=== PATIENT | female | born 1945 | race Caucasian/White ===

== ENCOUNTER 2023-09-24 11:41 | Inpatient (IN) | payer OTHER, MEDICARE ==
[2023-09-24] VITALS (7 sets, daily range): BP systolic 122–172; BP diastolic 53–68; PULSE 58–62; RESP 18–19; TEMP 97.1–98.3; O2SAT 97–98
[~2023-09-24] VITALS: Ht 162.6 cm; Wt 81.7 kg
[2023-09-24 13:24] LABS: BASOPHILS # (AUTO) 0.1 K/uL (0.00-0.22); BASOPHILS % (AUTO) 0.8 % (0.0-2.0); EOSINOPHILS # (AUTO) 0.2 K/uL (0-0.4); EOSINOPHILS % (AUTO) 2.3 % (0.0-4.0); HEMATOCRIT 29.2 % (36-48); HEMOGLOBIN 9.6 g/dL (12.0-16.0); LYMPHOCYTES # (AUTO) 1.4 K/uL (2.5-16.5); LYMPHOCYTES % (AUTO) 19.2 % (20.5-51.1); MEAN CORPUSCULAR HEMOGLOBIN 30 pg (27-31); MEAN CORPUSCULAR HGB CONC 33 g/dL (33-37); MEAN CORPUSCULAR VOLUME 91.3 fL (80-94); MONOCYTES # (AUTO) 0.7 K/uL (0.8-1.0); MONOCYTES % (AUTO) 10.5 % (1.7-9.3); NEUTROPHILS # (AUTO) 4.8 K/uL (1.8-7.7); NEUTROPHILS % (AUTO) 67.2 % (42.2-75.2); PLATELET COUNT (AUTO) 257 K/uL (140-450); RED CELL DISTRIBUTION WIDTH 14.6 % (11.6-13.7); WHITE BLOOD COUNT (AUTO) 7.2 K/uL (4.8-10.8)
[2023-09-24 13:35] LABS: ANION GAP 14.7 (8-16); CALCIUM 8.9 mg/dL (8.5-10.1); CARBON DIOXIDE 21.4 mmol/L (21-32); CHLORIDE 104 mmol/L (98-107); CREATININE 2.6 mg/dL (0.6-1.3); GLUCOSE 130 mg/dL (74-106); SODIUM SERUM 134 mmol/L (136-145)
[2023-09-24 13:37] LABS: POTASSIUM 6.1 mmol/L (3.5-5.1); UREA NITROGEN, BLOOD 64 mg/dL (7-18)
[2023-09-24 13:38] LABS: INR 0.97 (0.8-1.2); PARTIAL THROMBOPLASTIN TIME 32.1 secs (22-35.6); PROTHROMBIN TIME 10.2 secs (10.8-13.4)
[2023-09-24 13:44] LABS: ALANINE AMINOTRANSFERASE 15 U/L (12-78); ALBUMIN 3.4 g/dL (3.4-5.0); ALKALINE PHOSPHATASE 108 U/L (50-136); ASPARTATE AMINOTRANSFERASE 15 U/L (15-37); BILIRUBIN,DIRECT 0.1 mg/dL (0.0-0.3); TOTAL BILIRUBIN 0.3 mg/dL (0.0-1.0); TOTAL PROTEIN, SERUM 7.2 g/dL (6.4-8.2)
[2023-09-24] MEDS: SODIUM ZIRCONIUM CYCLOSILICATE 10 GM POWD.PACK PO ONE (14:05)
[2023-09-24] MEDS: DEXTROSE 50% 50 ML SYR IVP ONE (14:07)
[2023-09-24] MEDS: INSULIN REGULAR, HUMAN 100 UNIT/ML VIAL IVP ONE (14:08)
[2023-09-24] MEDS: SODIUM BICARBONATE 8.4% PFS 50 MEQ/50 ML SYR IVP ONE (14:12)
[2023-09-24] MEDS ORDERED: DAPA10TA PO (14:57)
[2023-09-24] MEDS ORDERED: MIRABULK PO (14:57)
[2023-09-24] MEDS ORDERED: LACT-191 PO (14:57)
[2023-09-24] MEDS ORDERED: LANTUS SUBQ (14:57)
[2023-09-24] MEDS ORDERED: SPIR50TA PO (14:57)
[2023-09-24] MEDS ORDERED: AMIO200T62 PO (14:57)
[2023-09-24] MEDS ORDERED: ATRN INH (14:57)
[2023-09-24] MEDS ORDERED: ESCI5TAB PO (14:57)
[2023-09-24] MEDS ORDERED: PRON INH (14:57)
[2023-09-24] MEDS ORDERED: INSU100V11 SQ (14:57)
[2023-09-24] MEDS ORDERED: APIX5TAB PO (14:57)
[2023-09-24] MEDS ORDERED: FAMO-368 PO (14:57)
[2023-09-24] MEDS ORDERED: FERR325E14 PO (14:57)
[2023-09-24] MEDS ORDERED: FURO-570 PO (14:57)
[2023-09-24] MEDS ORDERED: FOLI1TAB90 PO (14:57)
[2023-09-24] MEDS ORDERED: TRAZ-343 PO (14:57)
[2023-09-24] MEDS ORDERED: CALC1TAB72 PO (14:57)
[2023-09-24] MEDS ORDERED: DOCU-299 PO (14:57)
[2023-09-24 14:58] LABS: BILIRUBIN,URINE NEGATIVE (NEGATIVE); BLOOD, URINE NEGATIVE (NEGATIVE); COLOR,URINE YELLOW (YELLOW); LEUKOCYTE ESTERASE ,URINE TRACE (NEGATIVE); NITRITE, URINE NEGATIVE (NEGATIVE); PROTEIN,URINE NEGATIVE (NEGATIVE); UGLUCOSE 1+ (NEGATIVE); UROBILINOGEN,URINE 0.2 EU/dL (0.2 - 1)
[2023-09-24 15:03] LABS: APPEARANCE,URINE SLIGHTLY HAZY (CLEAR)
[2023-09-24 15:06] LABS: RBC,URINE 0 /HPF (0-5); WBC,URINE 0-5 /HPF (0-5)
[2023-09-24 15:07] LABS: BACTERIA,URINE 0-2 /HPF (None Seen); MUCUS,URINE 1+ /LPF (None Seen); SQUAMOUS EPITHELIAL CELL,UR 0-3 (FEW) /LPF (0-3 (FEW))
[2023-09-24] MEDS ORDERED: MORPHINE SULFATE 2 MG/ML SYR IVP PRN (17:50)
[2023-09-24] MEDS: NACL 0.9% 1,000 ML IV SCH (18:45)
[2023-09-25] VITALS (8 sets, daily range): BP systolic 112–122; BP diastolic 50–53; PULSE 60–62; RESP 18–20; TEMP 96–97.7; O2SAT 95–100
[2023-09-25 06:26] LABS: BASOPHILS % (AUTO) 0.7 % (0.0-2.0); EOSINOPHILS # (AUTO) 0.2 K/uL (0-0.4); EOSINOPHILS % (AUTO) 2.9 % (0.0-4.0); HEMATOCRIT 28.2 % (36-48); HEMOGLOBIN 9.4 g/dL (12.0-16.0); LYMPHOCYTES # (AUTO) 1.1 K/uL (2.5-16.5); LYMPHOCYTES % (AUTO) 18.6 % (20.5-51.1); MEAN CORPUSCULAR HEMOGLOBIN 30 pg (27-31); MEAN CORPUSCULAR HGB CONC 33 g/dL (33-37); MEAN CORPUSCULAR VOLUME 91.1 fL (80-94); MONOCYTES # (AUTO) 0.7 K/uL (0.8-1.0); MONOCYTES % (AUTO) 11.2 % (1.7-9.3); NEUTROPHILS # (AUTO) 3.9 K/uL (1.8-7.7); NEUTROPHILS % (AUTO) 66.6 % (42.2-75.2); PLATELET COUNT (AUTO) 241 K/uL (140-450); RED BLOOD CELL COUNT(AUTO) 3.09 MIL/uL (4.20-5.40); RED CELL DISTRIBUTION WIDTH 14.7 % (11.6-13.7); WHITE BLOOD COUNT (AUTO) 5.9 K/uL (4.8-10.8)
[2023-09-25 06:34] LABS: ANION GAP 12.1 (8-16); CALCIUM 8.8 mg/dL (8.5-10.1); CARBON DIOXIDE 25.6 mmol/L (21-32); CHLORIDE 107 mmol/L (98-107); CREATININE 2.6 mg/dL (0.6-1.3); GLUCOSE 122 mg/dL (74-106); POTASSIUM 4.7 mmol/L (3.5-5.1); SODIUM SERUM 140 mmol/L (136-145); UREA NITROGEN, BLOOD 57 mg/dL (7-18)
[2023-09-25] MEDS: ONDANSETRON 4 MG/2 ML VIAL IVP PRN (11:06)
[2023-09-25] MEDS: PANTOPRAZOLE 40 MG INJ VIAL IVP SCH (21:34)
[2023-09-25] MEDS: MEDS-TO-BEDS MC SCH (21:35)
[2023-09-26] VITALS (8 sets, daily range): BP systolic 114–139; BP diastolic 48–87; PULSE 56–64; RESP 17–20; TEMP 96.9–97.7; O2SAT 95–97
[2023-09-27] VITALS (7 sets, daily range): BP systolic 137–157; BP diastolic 50–63; PULSE 56–68; RESP 18–20; TEMP 96.9–98.6; O2SAT 98–99
[2023-09-27] MEDS: LACTULOSE 20 GM/30 ML UDC PO SCH (13:27)
[2023-09-27] MEDS: POLYETHYLENE GLYCOL 17 GM/PKT PO SCH (13:28)
[2023-09-28] VITALS: BP 141/60; PULSE 60; RESP 19; TEMP 97.5; O2SAT 98
[2023-09-28 04:00] VITALS: BP 152/59; PULSE 60; RESP 19; TEMP 97.6; O2SAT 100
[2023-09-28 08:00] VITALS: BP 141/56; PULSE 60; PULSE 61; RESP 17; TEMP 97.8; O2SAT 98
[2023-09-28] MEDS: SENNA 8.6 MG TAB PO SCH ×2 (09:48→14:21)
[2023-09-28 12:00] VITALS: BP 160/45; PULSE 60; RESP 18; TEMP 97.3; O2SAT 99
[2023-09-28] MEDS: diphenhydrAMINE 50 MG/ML VIAL ONE (13:00)
[2023-09-28] MEDS: MIDAZOLAM 5 MG/5 ML VIAL ONE (13:00)
[2023-09-28] MEDS: fentaNYL citrate 0.05 MG/ML VIAL ONE (13:00)
[2023-09-28] MEDS: MIDAZOLAM 2 MG/2 ML VIAL IVP ONE (13:36)
[2023-09-28] MEDS: fentaNYL citrate 0.05 MG/ML VIAL IVP ONE (13:37)
[2023-09-28 14:38] LABS: BASOPHILS # (AUTO) 0.1 K/uL (0.00-0.22); BASOPHILS % (AUTO) 0.9 % (0.0-2.0); EOSINOPHILS # (AUTO) 0.1 K/uL (0-0.4); EOSINOPHILS % (AUTO) 2.3 % (0.0-4.0); HEMATOCRIT 28.5 % (36-48); HEMOGLOBIN 9.4 g/dL (12.0-16.0); LYMPHOCYTES # (AUTO) 1.1 K/uL (2.5-16.5); LYMPHOCYTES % (AUTO) 20.7 % (20.5-51.1); MEAN CORPUSCULAR HEMOGLOBIN 30 pg (27-31); MEAN CORPUSCULAR HGB CONC 33 g/dL (33-37); MEAN CORPUSCULAR VOLUME 91.4 fL (80-94); MONOCYTES # (AUTO) 0.5 K/uL (0.8-1.0); MONOCYTES % (AUTO) 9.8 % (1.7-9.3); NEUTROPHILS # (AUTO) 3.5 K/uL (1.8-7.7); NEUTROPHILS % (AUTO) 66.3 % (42.2-75.2); PLATELET COUNT (AUTO) 222 K/uL (140-450); RED BLOOD CELL COUNT(AUTO) 3.12 MIL/uL (4.20-5.40); WHITE BLOOD COUNT (AUTO) 5.4 K/uL (4.8-10.8)
[2023-09-28 14:49] LABS: ANION GAP 12.8 (8-16); CALCIUM 8.3 mg/dL (8.5-10.1); CARBON DIOXIDE 22.1 mmol/L (21-32); CHLORIDE 112 mmol/L (98-107); CREATININE 1.9 mg/dL (0.6-1.3); GLUCOSE 115 mg/dL (74-106); POTASSIUM 4.9 mmol/L (3.5-5.1); SODIUM SERUM 142 mmol/L (136-145); UREA NITROGEN, BLOOD 35 mg/dL (7-18)
[2023-09-28] MEDS: MAGNESIUM HYDROXIDE 2400 MG/30 ML UDC PO ONE (15:35)
[2023-09-28 16:00] VITALS: BP 125/50; PULSE 60; RESP 18; TEMP 97.8; O2SAT 98
[2023-09-28] MEDS: MAGNESIUM HYDROXIDE 2400 MG/30 ML UDC ONE (17:08)
[2023-09-28] MEDS: LACTULOSE 20 GM/30 ML UDC PO SCH (17:09)
[2023-09-28] MEDS: LUBIPROSTONE 24 MCG CAPSULE PO SCH (17:09)
[2023-09-28 20:00] VITALS: BP 129/54; PULSE 60; RESP 18; TEMP 97.8; O2SAT 98
[2023-09-28] MEDS: ACETAMINOPHEN 325 MG TAB PO PRN (20:35)
[2023-09-29] VITALS: BP 136/52; PULSE 61; PULSE 62; RESP 18; TEMP 97.8; O2SAT 98
[2023-09-29 04:00] VITALS: BP 128/52; PULSE 61; PULSE 63; RESP 18; TEMP 97.8; O2SAT 96
[2023-09-29 08:00] VITALS: BP 133/62; PULSE 60; PULSE 66; RESP 18; RESP 20; TEMP 97.6; O2SAT 97
[2023-09-29 12:00] VITALS: BP 135/61; PULSE 62; RESP 18; TEMP 98.8; O2SAT 95
[2023-09-29 16:00] VITALS: BP 135/56; PULSE 60; RESP 18; TEMP 98.4; O2SAT 96
[2023-09-29 20:00] VITALS: BP 109/62; PULSE 60; PULSE 63; RESP 19; TEMP 97.9; O2SAT 96
[2023-09-30] VITALS: BP 100/52; PULSE 58; PULSE 61; RESP 19; TEMP 98.1; O2SAT 96
[2023-09-30] MEDS: PANTOPRAZOLE 40 MG TABEC PO ONE (02:15)
[2023-09-30] MEDS: SUCRALFATE 1 GM TAB PO ONE (02:24)
[2023-09-30] MEDS: PANTOPRAZOLE 40 MG INJ VIAL IVP ONE (02:49)
[2023-09-30 04:00] VITALS: BP 133/42; PULSE 61; PULSE 62; RESP 19; TEMP 96.8; O2SAT 96
[2023-09-30] MEDS: MORPHINE SULFATE 4 MG/ML SYR IVP PRN (05:54)
[2023-09-30 08:00] VITALS: BP 110/52; PULSE 58; PULSE 62; RESP 18; TEMP 96.7; O2SAT 96
[2023-09-30 08:33] LABS: HEMATOCRIT 36.9 % (36-48); HEMOGLOBIN 11.4 g/dL (12.0-16.0); MEAN CORPUSCULAR HEMOGLOBIN 29 pg (27-31); MEAN CORPUSCULAR HGB CONC 31 g/dL (33-37); MEAN CORPUSCULAR VOLUME 94.6 fL (80-94); PLATELET COUNT (AUTO) 258 K/uL (140-450); RED CELL DISTRIBUTION WIDTH 15.7 % (11.6-13.7)
[2023-09-30] MEDS: SUCRALFATE 1 GM TAB PO SCH (08:50)
[2023-09-30] MEDS: PANTOPRAZOLE 40 MG TABEC PO SCH (08:51)
[2023-09-30] MEDS ORDERED: PANTOPRAZOLE 40 MG TABEC PO SCH (09:00)
[2023-09-30 09:37] LABS: ANION GAP 14.4 (8-16); CALCIUM 8.6 mg/dL (8.5-10.1); CARBON DIOXIDE 20.7 mmol/L (21-32); CHLORIDE 110 mmol/L (98-107); CREATININE 2.6 mg/dL (0.6-1.3); GLUCOSE 250 mg/dL (74-106); POTASSIUM 3.1 mmol/L (3.5-5.1); SODIUM SERUM 142 mmol/L (136-145); UREA NITROGEN, BLOOD 30 mg/dL (7-18)
[2023-09-30 09:38] LABS: ALANINE AMINOTRANSFERASE 12 U/L (12-78); ALBUMIN 2.5 g/dL (3.4-5.0); ALKALINE PHOSPHATASE 98 U/L (50-136); ASPARTATE AMINOTRANSFERASE 18 U/L (15-37); TOTAL BILIRUBIN 0.4 mg/dL (0.0-1.0); TOTAL PROTEIN, SERUM 6.2 g/dL (6.4-8.2)
[2023-09-30 09:52] LABS: BASOPHILS % (MANUAL) 0 % (0-2); BLASTS, MANUAL % 0 % (0-0); EOSINOPHILS % (MANUAL) 0 % (0-4); LYMPHOCYTES % (MANUAL) 3 % (20-46); METAMYELOCYTES % 0 % (0-0); MONOCYTES % (MANUAL) 1 % (5-12); MYELOCYTES % 0 % (0-0); OTHER CELLS,MANUAL % 0 (0-0); PLASMA CELLS 0; PROMYELOCYTES % 0 % (0-0); SMUDGE CELLS 0
[2023-09-30 09:53] LABS: PLATELET ESTIMATE ADEQUATE
[2023-09-30 12:00] VITALS: BP 110/53; PULSE 61; RESP 18; TEMP 97.7; O2SAT 96
[2023-09-30] MEDS: diphenhydrAMINE 50 MG/ML VIAL ONE (12:38)
[2023-09-30] MEDS: fentaNYL citrate 0.05 MG/ML VIAL ONE (12:38)
[2023-09-30] MEDS: MIDAZOLAM 5 MG/5 ML VIAL ONE (12:39)
[2023-09-30] MEDS: MIDAZOLAM 5 MG/5 ML VIAL IV SCH (13:16)
[2023-09-30] MEDS: fentaNYL citrate 0.05 MG/ML VIAL IVP ONE (13:17)
[2023-09-30] MEDS: POTASSIUM CHLORIDE 20% 40 MEQ/15 ML UDC PO SCH (15:50)
[2023-09-30] MEDS: CIPROFLOXACIN 250 MG TAB PO SCH (15:50)
[2023-09-30 16:00] VITALS: BP 94/74; PULSE 57; PULSE 60; RESP 18; TEMP 97; O2SAT 98
[2023-09-30] MEDS ORDERED: traMADol 50 MG TAB PO PRN (17:00)
[2023-09-30] MEDS: LACTULOSE 20 GM/30 ML UDC PO SCH (17:14)
[2023-09-30] MEDS: traMADol 50 MG TAB ONE (17:15)
[2023-09-30] MEDS ORDERED: POTASSIUM CHLORIDE 10 MEQ TABER PO ONE (17:35)
[2023-09-30 20:00] VITALS: BP 113/52; PULSE 57; PULSE 65; PULSE 70; RESP 18; RESP 25; TEMP 97.5; O2SAT 96
[2023-09-30] MEDS ORDERED: INSULIN LISPRO SLIDING SCALE 100 UNITS/ML VIAL SUBQ PRN (20:40)
[2023-09-30] MEDS ORDERED: BLOOD GLUCOSE MONITORING 1 DEV DEV FS SCH (20:40)
[2023-09-30] MEDS ORDERED: DEXTROSE 50% 50 ML SYR IVP PRN (20:40)
[2023-09-30] MEDS: metroNIDAZOLE 500 MG TAB PO SCH (21:30)
[2023-10-01] VITALS (20 sets, daily range): BP systolic 54–187; BP diastolic 20–71; PULSE 60–116; RESP 18–28; TEMP 96.7–98.4; O2SAT 88–100
[2023-10-01] MEDS: TEMAZEPAM 15 MG CAP PO PRN (00:36)
[2023-10-01] MEDS ORDERED: MEROPENEM 1,000 MG in NACL 0.9% 50 ML IV SCH ×2 (04:00→15:30)
[2023-10-01] MEDS: METOCLOPRAMIDE 10 MG/2 ML INJ VIAL IVP SCH (04:41)
[2023-10-01] MEDS: MORPHINE SULFATE 2 MG/ML SYR IVP PRN (08:45)
[2023-10-01] MEDS ORDERED: fentaNYL citrate 1 MG in NACL 0.9% 80 ML IV PRN (12:20)
[2023-10-01 14:15] LABS: BLOOD GAS BASE EXCESS -29.2 mmol/L (-2.0-2.0); BLOOD GAS HCO3 6.3 mmol/L (22-26); BLOOD GAS PCO2 46.5 mmHg (35-45); BLOOD GAS PH 6.749 (7.35-7.45); BLOOD GAS PO2 91.9 mmHg (75-100)
[2023-10-01] MEDS: NOREPINEPHRINE 16 MG in DEXTROSE 5% 250 ML IV PRN (14:20)
[2023-10-01] MEDS: SODIUM BICARBONATE 8.4% PFS 50 MEQ/50 ML SYR IVP SCH ×4 (14:20→17:45)
[2023-10-01] MEDS: PROPOFOL 1000 MG/100 ML PREMIX 100 ML IV PRN (14:26)
[2023-10-01] MEDS: VASOPRESSIN 40 UNITS in NACL 0.9% 250 ML IV PRN (14:28)
[2023-10-01 14:59] LABS: BASOPHILS % (AUTO) 0.3 % (0.0-2.0); EOSINOPHILS % (AUTO) 0.9 % (0.0-4.0); HEMATOCRIT 39.4 % (36-48); HEMOGLOBIN 12.3 g/dL (12.0-16.0); LYMPHOCYTES # (AUTO) 0.5 K/uL (2.5-16.5); LYMPHOCYTES % (AUTO) 11.6 % (20.5-51.1); MEAN CORPUSCULAR HEMOGLOBIN 30 pg (27-31); MEAN CORPUSCULAR HGB CONC 31 g/dL (33-37); MEAN CORPUSCULAR VOLUME 95.2 fL (80-94); MONOCYTES # (AUTO) 0.1 K/uL (0.8-1.0); MONOCYTES % (AUTO) 2.1 % (1.7-9.3); NEUTROPHILS # (AUTO) 3.6 K/uL (1.8-7.7); NEUTROPHILS % (AUTO) 85.1 % (42.2-75.2); PLATELET COUNT (AUTO) 231 K/uL (140-450); RED BLOOD CELL COUNT(AUTO) 4.14 MIL/uL (4.20-5.40); RED CELL DISTRIBUTION WIDTH 16.3 % (11.6-13.7); WHITE BLOOD COUNT (AUTO) 4.2 K/uL (4.8-10.8)
[2023-10-01 15:11] LABS: ANION GAP 25.1 (8-16); CALCIUM 8.4 mg/dL (8.5-10.1); CHLORIDE 111 mmol/L (98-107); CREATININE 3.9 mg/dL (0.6-1.3); GLUCOSE 110 mg/dL (74-106); POTASSIUM 4.1 mmol/L (3.5-5.1); SODIUM SERUM 144 mmol/L (136-145); UREA NITROGEN, BLOOD 49 mg/dL (7-18)
[2023-10-01] MEDS: LACTATED RINGERS 1,000 ML IV SCH (15:28)
[2023-10-01] MEDS: HYDROCORTISONE NA SUCC 100 MG/2 ML VIAL IV SCH (15:33)
[2023-10-01] MEDS: SODIUM BICARBONATE 8.4% 150 MEQ in DEXTROSE 5% 1,000 ML IV SCH (16:00)
[2023-10-01] MEDS: MEROPENEM 1,000 MG in NACL 0.9% 50 ML IV SCH (16:18)
[2023-10-01 16:38] LABS: INR 1.53 (0.8-1.2); PROTHROMBIN TIME 15.7 secs (10.8-13.4)
[2023-10-01 16:39] LABS: PARTIAL THROMBOPLASTIN TIME 51.3 secs (22-35.6)
[2023-10-01] MEDS: ALBUMIN HUMAN 25% 100 ML IV SCH (17:21)
[2023-10-01 17:25] LABS: BLOOD GAS PCO2 39.5 mmHg (35-45); BLOOD GAS PH 6.895 (7.35-7.45); BLOOD GAS PO2 56.2 mmHg (75-100)
[2023-10-01 17:26] LABS: BLOOD GAS HCO3 7.5 mmol/L (22-26); BLOOD GAS O2 SAT% 87.8 % (92.0-98.5)
[2023-10-01] MEDS: PHENYLEPHRINE 40 MG in NACL 0.9% 250 ML IV PRN (17:54)
[2023-10-01 19:50] LABS: ANION GAP 29.4 (8-16); CALCIUM 8.2 mg/dL (8.5-10.1); CARBON DIOXIDE 11.5 mmol/L (21-32); CHLORIDE 109 mmol/L (98-107); CREATININE 3.9 mg/dL (0.6-1.3); GLUCOSE 113 mg/dL (74-106); POTASSIUM 3.9 mmol/L (3.5-5.1); SODIUM SERUM 146 mmol/L (136-145); UREA NITROGEN, BLOOD 48 mg/dL (7-18)
[2023-10-01 19:51] LABS: BASOPHILS % (AUTO) 0.1 % (0.0-2.0); EOSINOPHILS % (AUTO) 1.7 % (0.0-4.0); HEMATOCRIT 36.1 % (36-48); HEMOGLOBIN 11.4 g/dL (12.0-16.0); LYMPHOCYTES # (AUTO) 0.3 K/uL (2.5-16.5); LYMPHOCYTES % (AUTO) 17.5 % (20.5-51.1); MEAN CORPUSCULAR HEMOGLOBIN 30 pg (27-31); MEAN CORPUSCULAR HGB CONC 32 g/dL (33-37); MEAN CORPUSCULAR VOLUME 95.5 fL (80-94); MONOCYTES # (AUTO) 0.1 K/uL (0.8-1.0); MONOCYTES % (AUTO) 3.9 % (1.7-9.3); NEUTROPHILS # (AUTO) 1.3 K/uL (1.8-7.7); NEUTROPHILS % (AUTO) 76.8 % (42.2-75.2); PLATELET COUNT (AUTO) 187 K/uL (140-450); RED BLOOD CELL COUNT(AUTO) 3.77 MIL/uL (4.20-5.40)
[2023-10-01 19:54] LABS: WHITE BLOOD COUNT (AUTO) 1.7 K/uL (4.8-10.8)
[2023-10-01 19:58] LABS: INR 1.5 (0.8-1.2); PROTHROMBIN TIME 15.4 secs (10.8-13.4)
[2023-10-01 19:59] LABS: PARTIAL THROMBOPLASTIN TIME 53.5 secs (22-35.6)
[2023-10-01 20:13] LABS: BLOOD GAS BASE EXCESS -20.8 mmol/L (-2.0-2.0); BLOOD GAS HCO3 9.5 mmol/L (22-26); BLOOD GAS PCO2 38.6 mmHg (35-45); BLOOD GAS PO2 60.2 mmHg (75-100)
[2023-10-01] MEDS: PHYTONADIONE 10 MG in NACL 0.9% 50 ML IV SCH (20:39)
[2023-10-01] MEDS ORDERED: MEROPENEM 500 MG in NACL 0.9% 50 ML IV SCH (21:00)
[2023-10-01] MEDS: SODIUM BICARBONATE 8.4% PFS 50 MEQ/50 ML SYR IVP ONE ×2 (21:35→22:18)
[2023-10-01] MEDS: ALBUMIN HUMAN 25% 100 ML IV ONE (23:57)
[2023-10-02] VITALS (29 sets, daily range): BP systolic 126–186; BP diastolic 23–41; PULSE 67–97; RESP 25–28; TEMP 97–99.4; O2SAT 85–100
[2023-10-02 01:41] LABS: BASOPHILS % (AUTO) 0.7 % (0.0-2.0); EOSINOPHILS % (AUTO) 1.2 % (0.0-4.0); HEMATOCRIT 29.6 % (36-48); LYMPHOCYTES # (AUTO) 0.5 K/uL (2.5-16.5); LYMPHOCYTES % (AUTO) 22.9 % (20.5-51.1); MEAN CORPUSCULAR HEMOGLOBIN 30 pg (27-31); MEAN CORPUSCULAR HGB CONC 30 g/dL (33-37); MEAN CORPUSCULAR VOLUME 98.3 fL (80-94); MONOCYTES # (AUTO) 0.1 K/uL (0.8-1.0); MONOCYTES % (AUTO) 4.7 % (1.7-9.3); NEUTROPHILS # (AUTO) 1.7 K/uL (1.8-7.7); NEUTROPHILS % (AUTO) 70.5 % (42.2-75.2); PLATELET COUNT (AUTO) 144 K/uL (140-450); RED BLOOD CELL COUNT(AUTO) 3.01 MIL/uL (4.20-5.40); WHITE BLOOD COUNT (AUTO) 2.3 K/uL (4.8-10.8)
[2023-10-02 02:03] LABS: INR 1.46 (0.8-1.2); PARTIAL THROMBOPLASTIN TIME 49.5 secs (22-35.6)
[2023-10-02 02:04] LABS: CARBON DIOXIDE 11.1 mmol/L (21-32); CHLORIDE 105 mmol/L (98-107); GLUCOSE 64 mg/dL (74-106); POTASSIUM 4.1 mmol/L (3.5-5.1); SODIUM SERUM 147 mmol/L (136-145); UREA NITROGEN, BLOOD 50 mg/dL (7-18)
[2023-10-02] MEDS ORDERED: SODIUM BICARBONATE 8.4% PFS 50 MEQ/50 ML SYR IVP ONE (02:54)
[2023-10-02] MEDS: SODIUM BICARBONATE 8.4% PFS 50 MEQ/50 ML SYR IVP ONE (03:12)
[2023-10-02 03:24] LABS: BLOOD GAS BASE EXCESS -22.9 mmol/L (-2.0-2.0); BLOOD GAS HCO3 8.6 mmol/L (22-26); BLOOD GAS O2 SAT% 94.7 % (92.0-98.5); BLOOD GAS PCO2 41.6 mmHg (35-45); BLOOD GAS PH 6.933 (7.35-7.45)
[2023-10-02] MEDS: MEROPENEM 1,000 MG in NACL 0.9% 50 ML IV SCH (04:38)
[2023-10-02 05:53] LABS: EOSINOPHILS # (AUTO) 0.1 K/uL (0-0.4); LYMPHOCYTES # (AUTO) 0.4 K/uL (2.5-16.5); MONOCYTES # (AUTO) 0.1 K/uL (0.8-1.0); MONOCYTES % (AUTO) 3.1 % (1.7-9.3)
[2023-10-02 05:55] LABS: BASOPHILS % (AUTO) 0.3 % (0.0-2.0); EOSINOPHILS % (AUTO) 2.7 % (0.0-4.0); HEMATOCRIT 28.9 % (36-48); HEMOGLOBIN 9.1 g/dL (12.0-16.0); LYMPHOCYTES % (AUTO) 16.7 % (20.5-51.1); MEAN CORPUSCULAR HEMOGLOBIN 30 pg (27-31); MEAN CORPUSCULAR HGB CONC 32 g/dL (33-37); NEUTROPHILS # (AUTO) 1.7 K/uL (1.8-7.7); NEUTROPHILS % (AUTO) 77.2 % (42.2-75.2); PLATELET COUNT (AUTO) 110 K/uL (140-450); RED BLOOD CELL COUNT(AUTO) 3.04 MIL/uL (4.20-5.40); RED CELL DISTRIBUTION WIDTH 15.4 % (11.6-13.7); WHITE BLOOD COUNT (AUTO) 2.2 K/uL (4.8-10.8)
[2023-10-02 06:25] LABS: INR 1.57 (0.8-1.2); PROTHROMBIN TIME 16.2 secs (10.8-13.4)
[2023-10-02 07:08] LABS: GLUCOSE 64 mg/dL (74-106)
[2023-10-02 07:20] LABS: ANION GAP 36.8 (8-16); CALCIUM 7.8 mg/dL (8.5-10.1); CARBON DIOXIDE 14.2 mmol/L (21-32); CHLORIDE 104 mmol/L (98-107); SODIUM SERUM 151 mmol/L (136-145); UREA NITROGEN, BLOOD 50 mg/dL (7-18)
[2023-10-02 07:21] LABS: CREATININE 4.1 mg/dL (0.6-1.3)
[2023-10-02] MEDS: PANTOPRAZOLE 40 MG INJ VIAL IVP SCH (09:16)
[2023-10-02] MEDS ORDERED: EPINEPHrine 1 mg/mL 3 MG in DEXTROSE 5% 250 ML IV PRN (11:20)
[2023-10-02] MEDS: FUROSEMIDE 100 MG/10 ML VIAL IV SCH (11:41)
[2023-10-02] MEDS: SODIUM BICARBONATE 8.4% PFS 50 MEQ/50 ML SYR IVP SCH (11:42)
[2023-10-02] MEDS: EPINEPHrine 1 mg/mL 10 MG in DEXTROSE 5% 250 ML IV PRN (11:59)
[2023-10-02] MEDS ORDERED: SEVOFLURANE 250 ML BTL INH ONE (12:00)
[2023-10-02] MEDS: fentaNYL citrate 0.05 MG/ML VIAL ONE (12:33)
[2023-10-02] MEDS: EPINEPHrine PFS 0.1 MG/ML SYR IVP ONE (12:38)
[2023-10-02] MEDS: ROCURONIUM 50 MG/5 ML VIAL IV ONE (12:45)
[2023-10-02 14:47] LABS: BLOOD GAS PCO2 31.9 mmHg (35-45); BLOOD GAS PH 7.105 (7.35-7.45); BLOOD GAS PO2 88.9 mmHg (75-100)
[2023-10-02 14:48] LABS: BLOOD GAS BASE EXCESS -18.5 mmol/L (-2.0-2.0); BLOOD GAS HCO3 9.8 mmol/L (22-26); BLOOD GAS O2 SAT% 94.9 % (92.0-98.5)
[2023-10-03] VITALS: BP 128/30; PULSE 62; RESP 25; TEMP 97.8; O2SAT 95
[2023-10-03 01:00] VITALS: BP 132/30; PULSE 65; RESP 25; O2SAT 96
[2023-10-03 01:24] VITALS: BP 118/29; PULSE 62; O2SAT 97
[2023-10-03 02:00] VITALS: BP 128/39; PULSE 64; RESP 25; O2SAT 95
[2023-10-03 03:00] VITALS: BP 86/30; PULSE 115; RESP 25; O2SAT 82
[2023-10-03] MEDS: EPINEPHrine 1 MG/ML AMP ONE (03:07)
[2023-10-03 05:00] VITALS: BP 128/39; PULSE 64; RESP 25; O2SAT 95
== END 2023-10-03 03:58 | DRG 229 ==
LOC: MED 11:41 → MMU 16:51 → MIC 10-01 11:38
PROVIDERS: ADMIT Hospitalist; ATTEND Hospitalist
PROC: 0DJ08ZZ Inspection of Upper Intestinal Tract, Via Natural or Artificial Opening Endoscopic (ICD-10-PCS; 2023-09-28 12:00)
PROC: 0WJP0ZZ Inspection of Gastrointestinal Tract, Open Approach (ICD-10-PCS; principal; 2023-10-01)
PROC: 0DBL8ZZ Excision of Transverse Colon, Via Natural or Artificial Opening Endoscopic (ICD-10-PCS; 2023-10-01)
PROC: 02HV33Z Insertion of Infusion Device into Superior Vena Cava, Percutaneous Approach (ICD-10-PCS; 2023-10-01)
PROC: 5A0222C Assistance with Cardiac Oxygenation, Supersaturated (ICD-10-PCS; 2023-10-01)
PROC: 04HY32Z Insertion of Monitoring Device into Lower Artery, Percutaneous Approach (ICD-10-PCS; 2023-10-01)
PROC: 30233K1 Transfusion of Nonautologous Frozen Plasma into Peripheral Vein, Percutaneous Approach (ICD-10-PCS; 2023-10-01)
PROC: 5A1945Z Respiratory Ventilation, 24-96 Consecutive Hours (ICD-10-PCS; 2023-10-01)
PROC: 0BH17EZ Insertion of Endotracheal Airway into Trachea, Via Natural or Artificial Opening (ICD-10-PCS; 2023-10-01)
PROC: 30233M1 Transfusion of Nonautologous Plasma Cryoprecipitate into Peripheral Vein, Percutaneous Approach (ICD-10-PCS; 2023-10-02)
DX: K55.8 Other vascular disorders of intestine (principal); J96.01 Acute respiratory failure with hypoxia; R65.21 Severe sepsis with septic shock; J69.0 Pneumonitis due to inhalation of food and vomit; A41.9 Sepsis, unspecified organism; G93.41 Metabolic encephalopathy; N17.9 Acute kidney failure, unspecified; I95.9 Hypotension, unspecified; I46.9 Cardiac arrest, cause unspecified; D62 Acute posthemorrhagic anemia; E87.0 Hyperosmolality and hypernatremia; E87.20 Acidosis, unspecified; I12.9 Hypertensive chronic kidney disease with stage 1 through stage 4 chronic kidney disease, or unspecified chronic kidney disease; E11.22 Type 2 diabetes mellitus with diabetic chronic kidney disease; N18.30 Chronic kidney disease, stage 3 unspecified; E66.9 Obesity, unspecified; Z79.899 Other long term (current) drug therapy; Z68.30 Body mass index [BMI] 30.0-30.9, adult; E86.0 Dehydration; N18.9 Chronic kidney disease, unspecified; K63.5 Polyp of colon
CPT/HCPCS: 31500; 36415; 36430; 36600; 70450; 71045; 74018; 80048; 80053; 80076; 81001; 82803; 82948; 83605; 83735; 84484; 85025; 85610; 85730; 86140; 86886; 86900; 86901; 86920; 87040; 87081; 88305; 90935; 92950; 93005; 94003; 96374; 96375; 99291; C9113; J0171; J1200; J1720; J1815; J1940; J2185; J2250; J2270; J2370; J2405; J2704; J2710; J2765; J3010; J3430; J3490; J7030; J7060; J7120; P9012; P9017; P9046; Q0092